=== PATIENT | male | born 1975 | race Caucasian/White ===

== ENCOUNTER 2017-11-14 20:38 | Emergency (ER) | payer OTHER, MEDICARE ==
[~2017-11-14] VITALS: Ht 170.2 cm; Wt 95.3 kg
[~2017-11-14 20:38] MED LIST: INDOMETHACIN50 M1 PO; IPRATROPIUM BRO30 M2 NASB; LISINOPRIL40 M1 PO; LISINOPRIL40 MG PO; MONTELUKAST SOD10 M1 PO; MONTELUKAST SOD10 MG PO; NEXIUM 40MG40 MG PO; NEXIUM40 M1 PO; OXYCODONE HCL10 M2 PO; OXYCODONE HYDRO10 M1 PO; PERCOCET 325 MG1 TA2 PO; PROAIR HFA8.5 GM INH
--- NOTE | 2017-11-14 22:21 | RADIOLOGY REPORT ---
EXAMINATION: XR HIP, RIGHT CLINICAL INFORMATION: Dislocation COMPARISON: 10/21/2017 TECHNIQUE: Two views of the right hip. FINDINGS: Patient is status post right total hip arthroplasty. There has been superior subluxation of the femoral right femur. Acetabular component appears intact. No acute fracture demonstrated. The adjacent ilioischial and iliopectineal lines are intact. IMPRESSION: Right superior femur dislocation.
--- NOTE | 2017-11-14 23:12 | ED GENERAL ADULT ---
History of Present Illness General Chief Complaint: General Adult Stated Complaint: PT DISLOCATED HIS HIP Source: patient Exam Limitations: no limitations Vital Signs & Intake/Output Vital Signs & Intake/Output Vital Signs Date Time Temp Pulse Resp B/P B/P Pulse O2 O2 Flow FiO2 Mean Ox Delivery Rate 11/14 2326 58 18 130/60 99 Room Air 2.0L 11/14 2202 70 18 144/69 98 Room Air 11/14 2101 Room Air 11/14 2051 98.3 65 18 121/74 99 Room Air Allergies Coded Allergies: NO KNOWN ALLERGIES (12/13/13) Reconcile Medications Albuterol Sulfate (Proair Hfa) 90 MCG HFA.AER.AD 2 PUF INH AD PRN RESP. ( Reported) Esomeprazole (Nexium) 40 MG CAPSULE.DR 1 CAP PO DAILY GI (Reported) Indomethacin 50 MG CAPSULE 1 CAP PO BID ANKYLOSING SPONDYLITIS (Reported) with food Ipratropium [place] 21 MCG (0.03 %) SPRAY 1 SPRAY NASB DAILY PRN ALLERGIES ( Reported) Lisinopril 40 MG TABLET 0.5 TAB PO DAILY BP (Reported) Montelukast Sodium 10 MG TABLET 1 TAB PO DAILY ALLERGIES (Reported) Oxycodone HCl 10 MG TABLET 1 TAB PO AD PRN PAIN (Reported) Triage Note: PT HAS AN ARTIFICIAL RIGHT HIP AND BELIEVES IS OUT OF ITS SOCKET. THIS HAS OCCURED MANY TIMES BEFORE ACCORDING TO HIM. Triage Nurses Notes Reviewed? yes Onset: Abrupt Duration: minute(s): Timing: single episode today HPI: 42 y/o male with h/o HTN, GERD, right hip arthroplasty, recurrent right hip dislocations presenting with right hip pain x30 mins. Reports he was playing mini golf, bent over and felt it pop out. Feels like his prior hip dislocations. Denies numbness or paresthesias. (Samreen SILVA,Kamille) Past History Travel History Traveled to [place] past 21 day No Medical History Any Pertinent Medical History? see below for history Neurological: NONE EENT: NONE Cardiovascular: hypertension Respiratory: NONE Gastrointestinal: GERD Hepatic: NONE Renal: NONE Musculoskeletal: NONE Psychiatric: NONE Endocrine: NONE Blood Disorders: NONE Cancer(s): NONE SCHEDULE ANALYST/Reproductive: NONE Surgical History Surgical History: hip replacement (2 right) Psychosocial History What is your primary language [place] Tobacco Use: Current Daily Use Daily Tobacco Use Amount/Type: => 5 Cigarettes daily Family History Hx Contributory? No (Kamille Romeo) Review of Systems Review of Systems Constitutional: Reports: no symptoms. EENTM: Reports: no symptoms. Respiratory: Reports: no symptoms. Cardiovascular: Reports: no symptoms. GI: Reports: no symptoms. Genitourinary: Reports: no symptoms. Musculoskeletal: Reports: see HPI. Skin: Reports: no symptoms. Neurological/Psychological: Reports: no symptoms. Hematologic/Endocrine: Reports: no symptoms. Immunologic/Allergic: Reports: no symptoms. All Other Systems: Reviewed and Negative (Kamille Romeo) Physical Exam Physical Exam General Appearance: well developed/nourished, no apparent distress, alert, awake Head: atraumatic, normal appearance Eyes: Bilateral: normal appearance. Neck: normal inspection Respiratory: normal breath sounds, lungs clear Cardiovascular: regular rate/rhythm Gastrointestinal: soft, non-tender Back: normal inspection Extremities: RLE is shortened and rotated, diffuse TTP at the right hip, unable to range right hip, sensation intact, distal pulses 2+. Neurologic/Psych: awake, alert, oriented x 3, normal gait, normal mood/affect Skin: intact, normal color, warm/dry Core Measures ACS in differential dx? No CVA/TIA Diagnosis: No Sepsis Present: No Sepsis Focused Exam Completed? No (Kamille Romeo) Progress Differential Diagnoses I considered the following diagnoses in my evaluation of the patient: [hip fx vs dislocation vs nerve injury vs vascular injury] Plan of Care: Current Medications Sig/Swathi Start time Last Medication Dose Stop Time Status Admin Etomidate 18 MG ONCE ONE 11/14 2314 UNVr 11/14 (Amidate) 11/15 2315 2249 Fentanyl Citrate 100 MCG ONCE ONE 11/14 2314 UNVr 11/14 (Fentanyl 1000MCG 11/15 2315 2250 20ML Amp Inj) Naloxone HCl 0.4 MG ONCE ONE 11/14 2314 UNVr 11/14 (Narcan) 11/15 2315 230 Etomidate 20 MG ONCE ONE 11/14 2199 UNVr 11/14 (Amidate) 11/14 2200 2324 Fentanyl Citrate 50 MCG ONCE ONE 11/14 2199 UNVr 11/14 (Fentanyl 1000MCG 11/14 2200 2202 20ML Amp Inj) Ondansetron HCl 4 MG ONCE ONE 11/14 2199 UNVr 11/14 (Zofran) 11/14 2201 2207 Initial XR IMPRESSION: Right superior femur dislocation. Pt consciously sedated with etomidate and fentanyl. Dr. Graham was present for supervision. Right hip was reduced after 3 attempts, details outlined in procedure note. Post reduction film shows successful reduction. After a sufficient post sedation monitoring pt is cleared for discharge home. Is able to bear weight and ambulate. Given hip precautions and counseled on strict return precautions. Initial ED EKG: none (Kamille Romeo) Differential Diagnoses I considered the following diagnoses in my evaluation of the patient: (Timothy Graham DO) Departure Departure Disposition: HOME OR SELF CARE Condition: Stable Clinical Impression Primary Impression: Hip dislocation, right Referrals: Donte BELL,Kareen (PCP/Family) Additional Instructions: Follow-up with orthopedics for reevaluation. Return to the emergency department for any new or worsening symptoms. Departure Forms: Customer Survey General Discharge Information (Kamille Romeo) Departure Comments 11/23/17 I've seen and personally examined the patient and I agree with the PAs evaluation. Recurrent right hip dislocation. The hip was reduced under my direct supervision under moderate sedation. There were no complications. He will follow-up with orthopedics. (Timothy Graham DO) Procedures Joint Reduction Joint Reduction Site: hip (R) Conscious Sedation: conscious sedation, performed by me, performed by other (Dr. Graham) Reduction Attempts: 3 Pre-Procedure NV Exam: Yes Post-Procedure NV Exam: Yes Post Joint Reduction Film: joint reduced (Kamille Romeo) Critical Care Note Critical Care Note Critical Care Time: non-applicable (Kamille Romeo)
[2017-11-14 23:26] VITALS: BP 130/60
--- NOTE | 2017-11-14 23:26 | RADIOLOGY REPORT ---
EXAMINATION: XR HIP, RIGHT CLINICAL INFORMATION: Post reduction COMPARISON: November 14, 2017 TECHNIQUE: Two views of the right hip. FINDINGS: Since the film earlier today, the hip joint prosthesis has been reduced and findings are now normal. No acute fracture is seen. IMPRESSION: The right hip joint prosthesis is in good position status post reduction.
== END 2017-11-14 23:52 ==
LOC: ERH 20:38
DX: T84.020A Dislocation of internal right hip prosthesis, initial encounter (principal); X58.XXXA Exposure to other specified factors, initial encounter; Y93.53 Activity, golf; Y92.39 Other specified sports and athletic area as the place of occurrence of the external cause
CPT/HCPCS: 73502-RT; 96374; 96375; J2310; J2405

== ENCOUNTER 2018-01-21 03:06 | Emergency (ER) | payer OTHER, MEDICARE ==
[~2018-01-21] VITALS: Ht 167.6 cm; Wt 90.7 kg
--- NOTE | 2018-01-21 04:24 | ED CARDIAC/CP/PALPITATIONS ---
History of Present Illness General Chief Complaint: Chest Pain Stated Complaint: CHEST PAIN Source: patient, family, old records Exam Limitations: no limitations Vital Signs & Intake/Output Vital Signs & Intake/Output Vital Signs Date Time Temp Pulse Resp B/P B/P Pulse O2 O2 Flow FiO2 Mean Ox Delivery Rate 01/21 0356 98.3 64 18 138/76 99 Room Air Triage Nurses Notes Reviewed? yes Onset: 4 hours Duration: hour(s):, constant, continues in ED Timing: recent history Quality/Severity: mild, moderate, aching Location: Left chest Radiation: arms Activities at Onset: rest Prior Chest Pain/Card Workup: no prior chest pain, no prior cardiac workup Nitro Today/Relief: no nitro taken today Aspirin Today: 325 mg x 1, provided by ED HPI: prior to admission patient complains of constant left upper chest discomfort mild to moderate radiating to left arm occurring at rest. 2 weeks prior to admission patient took himself off all of his medications. He denies fever chills nausea vomiting diarrhea abdominal pain shortness of breath headache dysuria rash bleeding. (Betito Martinez MD) Allergies Coded Allergies: No Known Allergies (01/21/18) Reconcile Medications Lisinopril 40 MG TABLET 0.5 TAB PO DAILY BP (Reported) (Farideh BELL,Timothy Joseph) Past History Travel History Traveled to [place] past 21 day No Medical History Any Pertinent Medical History? see below for history Neurological: NONE EENT: NONE Cardiovascular: hypertension Respiratory: NONE Gastrointestinal: GERD Hepatic: NONE Renal: NONE Musculoskeletal: ankylosing spondylitis Psychiatric: NONE Endocrine: NONE Blood Disorders: NONE Cancer(s): NONE BIOMEDICAL ENGINEERING TECHNICIAN/Reproductive: NONE Surgical History Surgical History: hip replacement (2 right) Psychosocial History Who do you live with Family What is your primary language Austrian Family History Hx Contributory? No (Betito Martinez MD) Review of Systems Review of Systems Constitutional: Reports: no symptoms. EENTM: Reports: no symptoms. Respiratory: Reports: no symptoms. Cardiovascular: Reports: see HPI, chest pain. GI: Reports: no symptoms. Genitourinary: Reports: no symptoms. Musculoskeletal: Reports: no symptoms. Skin: Reports: no symptoms. Neurological/Psychological: Reports: no symptoms. Hematologic/Endocrine: Reports: no symptoms. Immunologic/Allergic: Reports: no symptoms. All Other Systems: Reviewed and Negative (Betito Martinez MD) Physical Exam Physical Exam General Appearance: well developed/nourished, alert, awake, anxious, mild distress Head: atraumatic, normal appearance Eyes: Bilateral: normal appearance, PERRL, EOMI. Ears, Nose, Throat: normal pharynx, normal ENT inspection, hearing grossly normal Neck: normal inspection, limited range of motion, no midline tenderness Respiratory: normal breath sounds, chest non-tender, no respiratory distress, quiet respiration, lungs clear Cardiovascular: regular rate/rhythm, normal peripheral pulses, norml femoral pulses equa Peripheral Pulses: 4+ carotid (R), 4+ carotid (L) Gastrointestinal: normal bowel sounds, soft, non-tender, no organomegaly Back: normal inspection, normal range of motion, no vertebral tenderness Extremities: normal inspection, normal capillary refill, normal range of motion, no edema, no ligament instability Neurologic/Psych: no motor/sensory deficits, awake, alert, oriented x 3, normal gait, normal mood/affect, digital media coordinator II-XII nml as tested Reflexes: 2+: bicep (R), bicep (L). Skin: intact, normal color, warm/dry Lymphatic: no anterior cervical salvador Core Measures ACS in differential dx? Yes No ASA d/t Medication Refused CVA/TIA Diagnosis No Sepsis Present: No Sepsis Focused Exam Completed? No (Michelle BELL,Betito) Progress Differential Diagnosis: CHF/pulm edema, costochondritis, hyperkalemia, musculoskeletal pain, pneumothorax Plan of Care: Orders Procedure Date/time Status Heart Healthy Diet 01/21 B Active EKG 01/21 0906 Active TROPONIN LEVEL 01/21 0720 Complete TROPONIN LEVEL 01/21 0405 Complete MAGNESIUM 01/21 0405 Complete COMPREHENSIVE METABOLIC PANEL 01/21 0405 Complete CBC WITHOUT DIFFERENTIAL 01/21 0405 Complete EKG 01/21 0329 Active Laboratory Tests 01/21/18 0730: Troponin I < 0.01 01/21/18 0415: Anion Gap 6, Estimated GFR > 60, BUN/Creatinine Ratio 21.4, Glucose 93, Calcium 9.6, Magnesium 2.0, Total Bilirubin 0.3, AST 20, ALT 37, Alkaline Phosphatase 66 , Troponin I < 0.01, Total Protein 6.7, Albumin 3.8, Globulin 2.9, Albumin/ Globulin Ratio 1.3, CBC w Diff NO MAN DIFF REQ, RBC 4.78, MCV 93.1, MCH 31.5 H, MCHC 33.8, RDW 13.6, MPV 6.2 L, Gran % 63.1, Lymphocytes % 21.9, Monocytes % 9.0, Eosinophils % 5.3 H, Basophils % 0.7, Absolute Granulocytes 4.7, Absolute Lymphocytes 1.6, Absolute Monocytes 0.7 H, Absolute Eosinophils 0.4, Absolute Basophils 0.1 Diagnostic Imaging: Viewed by Me: Radiology Read. Discussed w/RAD: Radiology Read. Initial ED EKG: normal axis, normal intervals, normal p-waves, normal QRS complex, normal sinus rhythm, no ST T wave changes Prior EKG: unchanged Rhythm Strip: normal sinus rhythm Hand-Off Endorsed To: Timothy Gong MD Endorsed Time: 0700 Pending: labs Comments: Patient declines ASA, analgesia (Betito Martinez MD) Comments: 01/21/2018 8:59:54 AM patient signed out to me by Dr. Martinez at shift change management expert. Patient is pain-free currently. He states his chest pain only occurs when he takes a deep breath or when he begins moving. There is no rash bruising or ecchymosis in the area of pain. Heart and lung examinations are unremarkable. Patient's repeat troponin is negative. I have ordered a repeat EKG. I feel if the patient's repeat EKG is unchanged he can be discharged with outpatient follow-up. I doubt acute coronary syndrome. 01/21/2018 9:51:09 AM patient's repeat EKG shows sinus bradycardia. I have discussed this with the patient and he states he has a history of a slow heart rate that has been evaluated by cardiologists in the past. I feel he is stable for discharge and outpatient management. (Timothy Gong MD) Departure Departure Condition: Stable Clinical Impression Primary Impression: Chest pain as manifestation of blood transfusion reaction Referrals: Kareen Kent MD (PCP/Family) Departure Forms: Customer Survey General Discharge Information (Betito Martinez MD) Departure Disposition: HOME OR SELF CARE Additional Instructions: Rest, no exertion or heavy lifting. Ibuprofen 600 mg every 6 hours as needed for pain. Follow-up with your primary care physician or your nurse leader tomorrow for reevaluation given the unclear nature of your chest pain. Return if any concerns or sudden worsening. Please note that there might be incidental findings in your evaluation that are unrelated to the current emergency department visit. Please notify your primary care doctor about this emergency department visit in order to obtain and review all of the testing performed so that these incidental findings can be monitored as needed. If you had an x-ray performed, please understand that some fractures or other findings may not be seen on the initial set of x-rays. If your symptoms persist you might need a repeat set of x-rays to check for such a fracture. If you had a laceration evaluated, please understand that foreign bodies such as glass or wood may not be visible to the naked eye or on plain x-rays. If the wound becomes red, swollen, increasingly more painful or if there is any drainage from the wound, please have it reevaluated by a physician for the possibility of a retained foreign body. If you're unable to follow up as outlined in the discharge instructions please return to the emergency department. Thank you for choosing the [facility] Emergency Department for your care. It was a pleasure to serve you today. Timothy Gong M.D. [facility] (Farideh BELL,Timothy Joseph) Critical Care Note Critical Care Note Critical Care Time: non-applicable (Michelle BELL,Betito)
[2018-01-21 04:25] LABS: ABSOLUTE BASOPHIL COUNT 0.1 /CUMM (0.0-0.2); ABSOLUTE EOSINOPHIL COUNT 0.4 /CUMM (0.0-0.7); ABSOLUTE GRANULOCYTE CT 4.7 /CUMM (1.4-6.5); ABSOLUTE LYMPH COUNT 1.6 /CUMM (1.2-3.4); ABSOLUTE MONOCYTE COUNT 0.7 /CUMM (0.10-0.60); BASOPHIL % 0.7 % (0.0-2.0); EOSINOPHIL % 5.3 % (0-5); GRANULOCYTE % 63.1 % (42.2-75.2); HEMATOCRIT 44.5 % (42-52); MEAN CORPUSCULAR HGB 31.5 PG (27.0-31.0); MEAN CORPUSCULAR HGB CONC 33.8 G/DL (33.0-37.0); MEAN CORPUSCULAR VOLUME 93.1 FL (80.0-94.0); MEAN PLATELET VOLUME 6.2 FL (7.4-10.4); PLATELET COUNT 287 /CUMM (130-400); RBC DISTRIBUTION WIDTH 13.6 % (11.5-14.5); RED BLOOD CELL CT 4.78 /CUMM (4.70-6.10); WHITE BLOOD CELL COUNT 7.4 /CUMM (4.8-10.8)
--- NOTE | 2018-01-21 05:23 | RADIOLOGY REPORT ---
EXAMINATION: XR CHEST CLINICAL INFORMATION: Chest pain COMPARISON: 05/26/2017 TECHNIQUE: 2 views of the chest were obtained. FINDINGS: The lungs are clear with no focal consolidation. No evidence of pneumothorax, pulmonary edema, or pleural effusions. The cardiomediastinal silhouette is unremarkable. No acute osseous findings. Redemonstrated changes of ankylosing spondylitis in the thoracic spine. IMPRESSION: No acute cardiopulmonary findings.
[2018-01-21 10:03] VITALS: BP 130/74
== END 2018-01-21 10:05 ==
LOC: ERH 03:06
PROVIDERS: Emergency Medicine
DX: T80.89XA Other complications following infusion, transfusion and therapeutic injection, initial encounter (principal); R07.89 Other chest pain; I10 Essential (primary) hypertension; K21.9 Gastro-esophageal reflux disease without esophagitis
CPT/HCPCS: 71046; 93005; 93010; 96374; J1885